=== PATIENT | female | born 1945 | race Caucasian/White ===

== ENCOUNTER 2017-02-06 11:26 | Day surgery (SDC) | payer MEDICARE ==
--- NOTE | ~2017-02-06 | EGD ---
EGD REPORT [facility] [address] [id number] NAME: MANDEEP FAM : [id number] STATUS : REG [facility]#: [id number] AGE: 71 ADM/REG DATE : 02/06/17 MR#: [id number] REPORT SERV DATE: 02/06/17 DICTATED BY: EDDA NIEVES DATE: 02/06/17 REPORT STATUS : Draft TRANSCRIBED BY: [facility] DATE: 02/06/17 Endoscopy Center Patient Name: Mandeep Fam Date of : 1945 Attending MD: EDDA NIEVES MD Procedure Date No Time: 02/06/2017 Procedure: Upper GI endoscopy Indications: Cirrhosis rule out esophageal varices Referring MD: GWEN JIN Medicines: Propofol per Anesthesia Complications: No immediate complications. Procedure: After obtaining informed consent, the endoscope was passed under direct vision. Throughout the procedure, the patient's blood pressure, pulse, and oxygen saturations were monitored continuously. The GIF [id number] was introduced through the mouth, and advanced to the second part of duodenum. The upper GI endoscopy was accomplished without difficulty. The patient tolerated the procedure well. Findings: The examined esophagus was normal. The entire examined stomach was normal. The examined duodenum was normal. Impression: - Normal esophagus. - Normal stomach. - Normal examined duodenum. Recommendation: - Repeat the upper endoscopy in 3 years for screening purposes. Procedure Code(s): --- Professional --- 28898, Esophagogastroduodenoscopy, flexible, transoral; diagnostic, including collection of specimen(s) by brushing or washing, when performed (separate procedure) Diagnosis Code(s): --- Professional --- K74.60, Unspecified cirrhosis of liver CPT copyright 2013 [employer]. All rights reserved. The codes documented in this report are preliminary and upon hims coder review may be revised to meet current compliance requirements. EGD REPORT [facility] [address] [address] NAME: MANDEEP FAM : 45 STATUS : REG [facility]#: [id number] AGE: 71 ADM/REG DATE : 02/06/17 MR#: [id number] REPORT SERV DATE: 02/06/17 DICTATED BY: EDDA NIEVES. DATE: 02/06/17 REPORT STATUS : Draft TRANSCRIBED BY: [employer] DATE: 02/06/17 EDDA NIEVES MD 02/06/2017 1:00 PM This report has been signed electronically. Number of Addenda: 0 Note Initiated On: 02/06/2017 12:51 PM Scope Withdrawal Time 0 hours 0 minutes 0 seconds [address] [id number]
[~2017-02-06 11:26] MED LIST: ACTOS30 PO; AMARYL1 MG PO; AMARYL4 PO; ASAB PO; ATEN25 PO; BION TEARS OPH; CENTRUM PO; CO Q-10100 MG PO; COQ10100 MG OR; COSAMIN DS1 TAB PO; FISH OIL300 MG PO; FISH-EPA1000 MG PO; GLIMEPIRIDE; GLUCCHONDR PO; GLUCOSAMINE PO; JANUMET XR 50-1 EAC1 PO; JANUMET1 TA1 PO; KRILL OIL PO; KRILL PO; LANTUS SC; MEGA RED OMEGA PO; METAMUCIL CAN7 OZ PO; MSM PO; MULTIPLE VIT PO; MULTIVIT/MIN PO; MULTIVITAMI1 PO; NATURL FIBER68 % PO; NITROSTAT0.4 MG SL; PRILOSEC40 MG PO; PRIN10 PO; PROBIOTIC PO; VITE PO; VITE1000 PO; VYTORIN 10/40 T1 TAB PO; WELCHOL 625 MG625 MG PO; [UNRECOGNIZED DRUG - OTHER] OR; [UNRECOGNIZED DRUG - OTHER] PO
== END 2017-02-06 23:59 | disposition home or self-care (01) ==
LOC: DMU 11:26
PROVIDERS: Internal Medicine Gastroenterology
PROC: 0DJ08ZZ Inspection of Upper Intestinal Tract, Via Natural or Artificial Opening Endoscopic (ICD-10-PCS; principal; 2017-02-06 13:00)
DX: K74.60 Unspecified cirrhosis of liver (principal); K76.6 Portal hypertension; G25.81 Restless legs syndrome; E11.9 Type 2 diabetes mellitus without complications; I10 Essential (primary) hypertension; Z88.0 Allergy status to penicillin; Z88.1 Allergy status to other antibiotic agents; Z88.8 Allergy status to other drugs, medicaments and biological substances; Z79.4 Long term (current) use of insulin; Z79.82 Long term (current) use of aspirin; Z79.899 Other long term (current) drug therapy; Z90.710 Acquired absence of both cervix and uterus; Z87.442 Personal history of urinary calculi; Z98.890 Other specified postprocedural states
CPT/HCPCS: 82962